=== PATIENT | female | born 1940 | race Caucasian/White ===

== ENCOUNTER 2023-01-21 09:36 | Outpatient (CLI) | payer OTHER, MEDICARE, MEDICAID, SELFPAY ==
--- NOTE | ~2023-01-21 | US_ITS ---
US soft tissue head and neck 01/21/2023 10:10 Indication: Palpable localized swelling right submandibular location Procedure: High-resolution Limited ultrasound of the right neck in the area of palpable concern. Comparison: No prior studies for comparison. Findings: In the area of palpable concern there is a vascular structure with normal color flow. Nearb y there is a small 2 mm complicated cyst of the submandibular gland. Impression: 1: Vascular structure corresponds to the area of palpable concern adjacent to the submandibular gland . 2: Minimally complicated 2 mm cyst of the right submandibular gland. Reviewed, dictated and finalized at location L. Impression: 1: Vascular structure corresponds to the area of palpable concern adjacent to t he submandibular gland. 2: Minimally complicated 2 mm cyst of the right submandibular gland.
== END 2023-01-21 09:37 | disposition home or self-care (01) ==
LOC: CHSIMG 09:38
PROVIDERS: PCP Family Medicine; Visit Provider Otolaryngology
DX: R22.1 Localized swelling, mass and lump, neck (principal); K11.6 Mucocele of salivary gland
CPT/HCPCS: 76536